=== PATIENT | female | born 1960 | race Two or more races ===

== ENCOUNTER → 2024-10-10 | Outpatient (CLI) | payer MEDICARE, MEDICAID, SELFPAY ==
--- NOTE | 2024-10-10 11:15 | XR_ITS ---
Examination: Screening digital mammography, bilateral Computer aided detection 3-D breast Tomosynthesis, bilateral Date and time of exam: October 10, 2023 at 1050 hours no priors Indication: Screening Technique: Nonmagnified MLO, CC views of the breasts to been obtained, reconstructed from 3-D Tomosynthesis images. R2 computer aided detection program utilized for evaluation of suspicious masses and/or abnormal calcifications. 3-D Tomosynthesis images obtained. Findings: Scattered areas of fibroglandular density. Benign calcifications. No suspicious mass Impression: BI-RADS category II: Benign Findings. Recommend 1 year follow-up mammogram.
== END | disposition home or self-care (01) ==
PROVIDERS: PCP Nurse Practitioner Family; Referring Provider Nurse Practitioner Family; Visit Provider Nurse Practitioner Family
DX: Z12.31 Encounter for screening mammogram for malignant neoplasm of breast (principal); R92.323 Mammographic fibroglandular density, bilateral breasts; R92.1 Mammographic calcification found on diagnostic imaging of breast
CPT/HCPCS: 77063; 77067

== ENCOUNTER → 2024-11-23 | Outpatient (CLI) | payer MEDICARE, MEDICAID, SELFPAY ==
--- NOTE | 2024-11-23 15:30 | XR_ITS ---
Examination: Retroperitoneal ultrasound, complete Technique: Multiple high resolution grayscale images of the retroperitoneum obtained, including kidneys and bladder. Exam date and time:November 23, 2024 1614 hours INDICATIONS: Diagnosis acute renal insufficiency one year ago. FINDINGS: Right kidney 12.1 x 5.9 x 5.9 cm cortex 1.9 cm No kidney 10.1 x 5.5 x 5\ 3.9 cm cortex 1.3 cm Moderate bilateral renal parenchymal scar formation No hydronephrosis or renal calculi Bladder prevoid volume 810 cc postvoid volume 0 cc No bladder mass IMPRESSION: Bilateral renal cortical thinning Moderate bilateral renal parenchymal scar formation No hydronephrosis
[2024-11-23 17:36] LABS: Collection Type, Urine Clean Catch
[2024-11-23 18:09] LABS: Basophils % (Auto) 0 % (0-2.5); Eosinophils # (Auto) 0.1 Thou/mm3 (0.0-0.5); Eosinophils % (Auto) 2 % (0-10); Hematocrit 32.4 % (36.0-46.0); Hemoglobin 10.8 g/dL (12.0-16.0); Immature Granulocytes % (Auto) 0 % (0-0); Immature Granulocytes Auto 0.02 Thou/mm3 (0.00-0.00); Lymphocytes # (Auto) 2.6 Thou/mm3 (1.0-4.8); Lymphocytes % (Auto) 31 % (10-50); Mean Corpuscular HGB Conc 33.3 g/dl (31.0-37.0); Mean Corpuscular Hemoglobin 29.9 pg (25.0-35.0); Mean Corpuscular Volume 90 fL (80-100); Monocytes # (Auto) 0.5 Thou/mm3 (0.0-0.8); Monocytes % (Auto) 6 % (0-12); Neutrophils % (Auto) 61 % (37-80); Nucleated Red Blood Cell % 0 /100 WBC (0); Platelet Count 245 Thou/mm3 (140-440); RDW Standard Deviation 40.5 fL (36.4-46.3); Red Blood Count 3.61 Miln/mm3 (4.00-5.20); White Blood Count 8.2 Thou/mm3 (3.6-11.0)
[2024-11-23 18:19] LABS: Glucose Estimated Average 180 mg/dL (80-131); Hemoglobin A1C 7.9 % Hgb (4.8-6.0); Parathyroid Hormone Intact 154.9 pg/ml (18.5-88.0)
[2024-11-23 18:21] LABS: Albumin, Serum 4.4 gm/dL (3.4-4.8); Anion Gap 11 (7-16); BUN/Creatinine Ratio 19 Ratio (12-20); Blood Urea Nitrogen 25 mg/dL (9-23); Calcium 9.3 mg/dL (8.3-10.6); Calcium (Corrected) 9.3 mg/dL (8.5-10.1); Carbon Dioxide 26.8 mMol/L (20.0-31.0); Chloride 98 mMol/L (98-107); Creatinine (Component) 1.3 mg/dL (0.6-1.3); Glucose 85 mg/dL (74-106); Osmolality,Calculated 275 (275-295); Phosphorous 3.7 mg/dL (2.4-5.1); Potassium 3.8 mMol/L (3.4-5.1); Sodium 136 mMol/L (136-145); eGFR 46 See Note
[2024-11-23 18:25] LABS: Bilirubin,Urine Negative (Negative); Blood,Urine Negative (Negative); Clarity,Urine Clear (Clear/Hazy); Color,Urine Colorless (Lt Yel-Yel); Glucose, Urine Negative (Negative); Ketones,Urine Negative (Negative); Leukocyte Esterase,Urine Negative (Negative); Nitrite,Urine Negative (Negative); PH,Urine 6.5 (5.0-7.0); Protein,Urine Negative (Neg - Trace); RBC,Urine 1 /hpf (0-3); Specific Gravity,Urine 1.005 (1.001-1.035); Squamous Epithelial Cell,Urine < 1 /hpf (0-5); Urobilinogen,Urine Negative mg/dL (0.0-1.0); WBC,Urine 1 /hpf (0-5)
== END | disposition home or self-care (01) ==
LOC: CDIM 15:46 → COPL 16:34
PROVIDERS: PCP Internal Medicine; Referring Provider Internal Medicine; Visit Provider Radiology Diagnostic Radiology
DX: N28.89 Other specified disorders of kidney and ureter (principal); N17.9 Acute kidney failure, unspecified
CPT/HCPCS: 36415; 76770; 80069; 81001; 83036; 83970; 85025

== ENCOUNTER 2025-05-04 06:34 | Day surgery (SDC) | payer MEDICARE, MEDICAID, SELFPAY ==
--- NOTE | 2025-05-03 07:00 | EKG_ITS ---
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
[2025-05-03 12:37] LABS: Basophils # (Auto) 0.0 Thou/mm3 (0.0-0.2); Basophils % (Auto) 0 % (0-2.5); Eosinophils # (Auto) 0.2 Thou/mm3 (0.0-0.5); Eosinophils % (Auto) 3 % (0-10); Hematocrit 32.4 % (36.0-46.0); Hemoglobin 10.3 g/dL (12.0-16.0); Immature Granulocytes Auto 0.01 Thou/mm3 (0.00-0.00); Lymphocytes # (Auto) 2.6 Thou/mm3 (1.0-4.8); Lymphocytes % (Auto) 36 % (10-50); Mean Corpuscular HGB Conc 31.8 g/dl (31.0-37.0); Mean Corpuscular Hemoglobin 29.8 pg (25.0-35.0); Mean Corpuscular Volume 94 fL (80-100); Monocytes # (Auto) 0.4 Thou/mm3 (0.0-0.8); Monocytes % (Auto) 5 % (0-12); Neutrophils # (Auto) 4.0 Thou/mm3 (1.8-7.7); Neutrophils % (Auto) 56 % (37-80); Nucleated Red Blood Cell # 0.00 Thou/mm3 (0.00-0.00); Nucleated Red Blood Cell % 0 /100 WBC (0); Platelet Count 235 Thou/mm3 (140-440); RDW Standard Deviation 43.7 fL (36.4-46.3); Red Blood Count 3.46 Miln/mm3 (4.00-5.20); White Blood Count 7.2 Thou/mm3 (3.6-11.0)
[2025-05-03 12:42] LABS: Anion Gap 8 (7-16); BUN/Creatinine Ratio 15 Ratio (12-20); Blood Urea Nitrogen 24 mg/dL (9-23); Calcium 9.4 mg/dL (8.3-10.6); Carbon Dioxide 26.9 mMol/L (20.0-31.0); Chloride 108 mMol/L (98-107); Creatinine (Component) 1.6 mg/dL (0.6-1.3); Glucose 103 mg/dL (74-106); Osmolality,Calculated 288 (275-295); Potassium 4.6 mMol/L (3.4-5.1); Sodium 143 mMol/L (136-145); eGFR 36 See Note
[2025-05-03 12:45] LABS: INR 1.0 (0.9-1.3); Partial Thromboplastin Time 27.3 Seconds (22.0-36.0); Prothrombin Time 11.0 Seconds (9.0-12.2)
[2025-05-03 12:46] LABS: COVID-19 Antigen (In-House) Negative (Negative)
[2025-05-04] VITALS (9 sets, daily range): BP systolic 115–171; BP diastolic 62–90; PULSE 56–71; RESP 14–18; TEMP 36.2–36.5; O2SAT 93–100; BMI 31.1
[2025-05-04] MEDS: DIAZEPAM 5 MG TABLET PO (07:17)
--- NOTE | 2025-05-04 08:13 | ESOP_ITS ---
Cardiac Cath Procedure Procedure Narrative Date of the procedure 05/04/2025 Indication for the procedure 64-year-old female with past medical history of hypertension hyperlipidemia coronary artery disease prior history of diabetes patient was complaining of atypical chest pain Cardiolite scan was abnormal Cardiac catheter and cholangiogram recommended Title of the procedure 1.left heart catheterization 2.left coronary angiogram 3.right coronary angiogram 4.left ventriculogram 5.conscious sedation 6.radiographic interpretation supervision 7.ultrasound guidance for right radial access Procedure This was done in the cardiac lab under current electrocardiographic monitoring Intermittent blood pressure monitoring right radial access obtained using modified Seldinger technique and ultrasound guidance 6 [place] sheath was placed TIG 4 catheter was used for selective engagement of the left coronary artery TIG 4 catheter was used for selective images right coronary artery TIG 4 catheter used for left ventriculogram Hemodynamics Overall left ventricular systolic function appears normal approximate ejection fraction 50% End-diastolic pressure was 18 mmHg There is no gradient across aortic valve Coronary anatomy 1.left Main coronary artery appears normal 2.left anterior descending artery has a mid segment 40% lesion noted 3.circumflex does not seem to have any significant lesion 4.obtuse marginal appears to have a 40% lesion 5.right coronary artery is a dominant vessel 6.there is a stent in the proximal part of the right coronary artery appears to be widely patent 7.PDA appears to have luminal irregularities Conclusion Patent stent in the RCA Continue medical management
[2025-05-04] MEDS: ONDANSETRON INJ 2 MG/ML INJ 2 ML 4 MG IV (08:21)
[2025-05-04] MEDS: SODIUM CHLORIDE 0.45 % 500 ML 999 ML IV (08:21)
== END 2025-05-04 11:15 | disposition home or self-care (01) ==
PROVIDERS: PCP Nurse Practitioner Family; Referring Provider Internal Medicine; Visit Provider Internal Medicine
PROC: (CPT 93458; principal; 2025-05-04 07:45)
DX: I25.119 Atherosclerotic heart disease of native coronary artery with unspecified angina pectoris (principal); E11.9 Type 2 diabetes mellitus without complications; E78.5 Hyperlipidemia, unspecified; I10 Essential (primary) hypertension; Z95.5 Presence of coronary angioplasty implant and graft; Z01.810 Encounter for preprocedural cardiovascular examination
CPT/HCPCS: 93458; 36415; 80048; 85025; 85610; 85730; 87811; 93005; 99152; A4216; A4649; C1769; C1887; C1894; J0168; J0461; J0583; J1643; J2250; J2310; J2371; J2405; J3010; J3490; J7040; Q9967; A9270; C1725

== ENCOUNTER → 2025-09-22 | Outpatient (CLI) | payer MEDICARE, MEDICAID, SELFPAY ==
--- NOTE | 2025-09-22 11:30 | XR_ITS ---
Examination: Retroperitoneal ultrasound, complete Technique: Multiple high resolution grayscale images of the retroperitoneum obtained, including kidneys and bladder. Exam date and time: September 22, 2025, 1117 hours INDICATIONS: Acute renal insufficiency on laboratory examination today, flank pain 2 weeks. FINDINGS: Right kidney 10.6 cm renal cortex 1.5 cm Left kidney 9.0 cm renal cortex 1.4 cm Moderate renal scar formation No hydronephrosis No bladder mass or bladder calculi IMPRESSION: Small kidneys with bilateral renal cortical thinning Moderate bilateral renal parenchymal scar formation
== END | disposition home or self-care (01) ==
PROVIDERS: PCP Nurse Practitioner Family; Referring Provider Internal Medicine; Visit Provider Internal Medicine
DX: N28.89 Other specified disorders of kidney and ureter (principal)
CPT/HCPCS: 76770